=== PATIENT | male | born 1950 | race Caucasian/White ===

== ENCOUNTER → 2016-06-17 | Outpatient (CLI) | payer OTHER, MEDICARE ==
--- NOTE | 2016-06-17 10:34 | DX ---
Biphasic Esophagram CLINICAL HISTORY: 66-year-old male with right-sided throat pain, and a postnasal drip from the eustac hian tube, with a history of reflux symptoms (and a bleeding esophageal ulceration at age ). Evaluate dysphagia. ICD 10 Diagnostic Code: R13.10. TECHNIQUE: While the patient was standing, effervescent crystals and thick barium were ingested. Fluo roscopy of the hypopharynx and of the cervical and thoracic esophagus was then performed. The patient also ingested a barium tablet with water. Finally, he was placed in prone and AYALA positions, and thi n barium was ingested while a Valsalva maneuver was performed. Fluoroscopy Time: 1.8 minutes (exposure dose of 36.30 mGy). FINDINGS: There is oropharyngeal propulsion of the bolus into the hypopharynx. There is a normal, sym metrical appearance to the vallecula and the piriform sinuses. The posterior cervical esophagus is no rmal. There is no evidence of aspiration, cricopharyngeal spasm, or achalasia. There is no Zenker div erticulum. On several images from the first acquired thoracic esophageal sequences, there is an eccen tric filling defect at the thoracic inlet involving the right portion of the esophagus. This did not behave like a typical "air bubble" and theoretically may be a result of some extrinsic compression fr om vascular anatomy, although this is also at the level of the patient's symptoms and endoscopy is re commended to evaluate the lumen in this location. There is antegrade esophageal motility and normal-a ppearing mucosa otherwise. When the patient was supine or recumbent, a small central sliding hiatal h ernia was elicited, with some low-level gastroesophageal reflux which promptly cleared. There was no esophageal ulceration or stricture, and there is no pulsion diverticulum. I provided a preliminary in terpretation to the patient at time of exam performance. IMPRESSION: 1. Smoothly-contoured eccentric filling defect along the right aspect of the proximal thoracic esopha iain near the inlet. Endoscopic correlation is recommended to exclude an intraluminal abnormality. If endoscopy is unrevealing, CT imaging of the chest may be of benefit to exclude a vascular impression in this location. 2. Small central sliding hiatal hernia with transient low-level gastroesophageal reflux when the chavo ent was supine or recumbent.
== END ==
LOC: FIMAGING 09:10
PROVIDERS: ATTEND Physician Assistant Medical
DX: R13.10 Dysphagia, unspecified (principal); R09.82 Postnasal drip; K44.9 Diaphragmatic hernia without obstruction or gangrene; K21.9 Gastro-esophageal reflux disease without esophagitis

== ENCOUNTER → 2016-07-07 | Outpatient (CLI) | payer OTHER, MEDICARE ==
[~2016-07-07] MED LIST: IOPAMIDOL (ISOVUE-300) 100 ML BTL IV ONE
[2016-07-07 14:50] LABS: CREATININE 0.8 mg/dL (0.7-1.3); GLOMERULAR FILTRATION RATE > 60
--- NOTE | 2016-07-07 18:16 | CT ---
CT Scan of the Chest (With Contrast) Clinical Indications: Discomfort in throat to the right of the trachea at the level of the cricoid, R 13.10 Comparison: Esophagram June 17, 2016 Technique: During power injection of 90 mL Isovue 300 intravenously, multidetector [address] imaging was performed from the superior thoracic inlet to the diaphragm. A second set of images i s performed through the thoracic inlet just after the patient is swallowing. The radiologist manipula rosangela images at the computer workstation. Dose reduction techniques were utilized. Findings: Best identified on the immediate post swallowing study on axial image 74 of series 8 is an unusual appearance to the thoracic esophagus at the thoracic inlet, where a small portion of the the right side of the esophagus prolapses into the back of the posterior trachea. This suggests tracheoma lacia. There is some linear calcification of the aortic valve leaflets. There is no pericardial effus ion. There is no intracardiac thrombus. There is degenerative cervical disk space narrowing at C4-C5 and C6-C7. Anterior projecting marginal disk space osteophytes mildly project into the prevertebral soft tissues but do not obviously indent or displace the upper most portion of the esophagus, which is immediatel y above the abnormality described above. The larynx and remainder of the trachea look normal. The thy roid is normal. There is shotty noncalcified mediastinal and bilateral hilar adenopathy. There is no lung mass. There is triple-vessel coronary artery disease. Limited images through the upper abdomen demonstrate multiple low density lesions in the liver, the l argest of which in the left lobe measures 6.4 cm and average HU10.2, that likely represent incidental hepatic cysts, that are not significantly changed since July 2014 CT. There is a large chronic s car involving the upper pole of the right kidney. There is nonobstructive stable right upper pole sma ll volume nephrolithiasis. The spleen is normal in size and homogeneous. There is patchy subtle groundglass infiltrate in the right lower lung that may indicate early or reso lving pneumonia. There is no focal consolidation or pleural effusion. 1. Findings suspicious for tracheomalacia. Consider repeat noncontrast CT during expiration and force d coughing to assess for tracheal decrease in size. 2. Triple-vessel coronary artery disease. 3. Shotty mediastinal and hilar adenopathy. 4. Large hepatic lesions likely incidental cysts, stable since noncontrast CT July 2014. General information for patients regarding this examination can be found at [email or web address]. If you have questions or comments about this report, please contact me at [phone] (hospital) or [phone] (cell).
== END ==
LOC: FIMAGING 13:41
PROVIDERS: ATTEND Internal Medicine Gastroenterology
DX: R13.10 Dysphagia, unspecified (principal); I25.10 Atherosclerotic heart disease of native coronary artery without angina pectoris; N28.9 Disorder of kidney and ureter, unspecified
CPT/HCPCS: 71260; Q9967

== ENCOUNTER → 2017-01-14 | Outpatient (CLI) | payer OTHER, MEDICARE ==
[~2017-01-14] MED LIST changes: -IOPAMIDOL (ISOVUE-300) 100 ML BTL IV ONE; +IOPAMIDOL (ISOVUE-300) 100 ML BTL ONE
== END ==
LOC: FIMAGING 08:12
DX: R05 Cough (principal)
CPT/HCPCS: 70491; Q9967

== ENCOUNTER 2017-08-16 18:25 | Observation (INO) | payer OTHER, MEDICARE ==
--- NOTE | 2017-08-16 19:10 | EDPHY ---
H & P Time Seen by Provider: 08/16/17 19:09 HPI/ROS: Chief complaint. Abdominal pain HPI. 67-year-old male who was well earlier today and then developed chest and abdominal pain about an hour and a half ago. Shaking. No vomiting or diarrhea. He has some diffuse anterior chest discomfort. He has diffuse and generalized abdominal discomfort. He almost passed out prior to arrival and noticed that his vision went white. His vision is normal now does not have a headache. Possibly he 8 bad food at noon. He also complains of shortness of breath. No fever cough. Symptoms are worse with standing ROS Constitutional. no fever/chills, no weakness Eyes. no problems with vision ENT. no sore throat, no nasal drainage Cardiovascular. Chest pain Respiratory. Shortness of breath Abdominal. Generalized abdominal pain without vomiting or diarrhea . no problems urinating MS. no calf pain/swelling, no neck/back pain, no joint pain Skin. no rash Lymph. no swollen glands Neuro. no headache, no dizziness, no difficulty walking or with speech Past Medical/Surgical History: Renal cyst, detached retina, hypertension, arteriosus, kidney stones Social History: , nonsmoker, no alcohol Smoking Status: Never smoked Physical Exam: General Appearance: Alert well-developed male moderate distress and ill appearing with stable vital signs. Eyes: Pupils equal and round no pallor or injection. ENT, Mouth: Mucous membranes are moist. Respiratory: There are no retractions, lungs are clear to auscultation. Cardiovascular: Regular rate and rhythm. Gastrointestinal: Abdomen is soft diffusely tender. No masses. No pulsatile masses. Normal bowel sounds. Neurological: Awake and alert, sensory and motor exams grossly normal. Skin: Warm and dry, no rashes. Musculoskeletal: Neck is supple nontender. Extremities symmetrical, full range of motion. Psychiatric: Patient is oriented X 3, there is no agitation. Constitutional: Initial Vital Signs Temperature (C) 36.5 C 08/16/17 18:33 Heart Rate 59 L 08/16/17 18:33 Respiratory Rate 16 08/16/17 18:33 Blood Pressure 118/63 08/16/17 18:33 O2 Delivery Mode Nasal Cannula O2 (L/minute) 2 Allergies/Adverse Reactions: Penicillins Allergy (Mild, Verified 07/26/14 15:10) FINGERS SWELLING Home Medications: Medication Instructions Recorded Aspirin [Aspirin 325 mg (*)] 325 mg PO HS 07/26/14 Atorvastatin Calcium [Lipitor 10 10 mg PO HS 07/26/14 mg (*)] Hydrochlorothiazide [HCTZ (*)] 12.5 mg PO HS 07/26/14 Lisinopril [Zestril 20 mg (*)] 20 mg PO HS 07/26/14 Niacin ER [Niaspan 1000 mg (*)] 1,000 mg PO HS 07/26/14 Promethazine HCl [Phenergan 6.25 - 12.5 mg IVP Q6 PRN #0 vial 07/27/14 Injection] Tamsulosin HCl [Flomax 0.4 MG (*)] 0.4 mg PO DAILY #14 cap 07/27/14 oxyCODONE IR [Oxycodone Ir (*)] 5 - 10 mg PO Q3 PRN #30 tab 07/27/14 Medical Decision Making - Diagnostics EKG Interpretation: EKG interpreted by me shows normal sinus rhythm with normal interval. There is left axis deviation. QRS is normal. There is no significant ST elevation or depression. The rate is 66 Imaging Results: Imaging Impressions Chest X-Ray 08/16/17 19:17 Impression: Chest negative for acute abnormality. One-view chest interpreted by me is negative for pneumonia or pneumothorax. Mediastinum appears normal. CT angiogram chest shows no evidence of pulmonary embolus or aortic dissection CT of abdomen and pelvis with IV contrast shows no evidence of aortic aneurysm or dissection. Diverticulosis but not itis. Fairly significant coronary artery disease. Procedures: IV normal saline with 2 L. Dilaudid for pain. Zofran for nausea ED Course/Re-evaluation: Serial evaluations patient continually is asking for pain medication. He has been treated with several rounds of Dilaudid. At 8:45 a.m. The patient, his , and I discussed treatment plan and recommendation for admission. They expressed understanding and agreement I consulted and discussed the case with , hospitalist who agrees to the admission Differential Diagnosis: The etiology of patient's symptoms is not clear. The patient appeared ill I was concerned about pulmonary embolus as well as aortic dissection because he had both chest and abdominal discomfort. He was complaining that he could not breathe. Workup shows no evidence of dissection or pulmonary embolus. I have considered acute coronary syndrome as the patient does have calcifications on his CT. He has diverticulosis but no evidence for diverticulitis. The patient is think that the patient may have food poisoning although he has not had any vomiting or diarrhea. He did apparently have bad food exposure. - Data Points Laboratory Results: Laboratory Results 08/16/17 19:00 08/16/17 19:00 08/16/17 08/16/17 08/16/17 20:10 19:00 19:00 WBC 8.42 10^3/uL 10^3/uL (3.80-9.50) RBC 4.63 10^6/uL 10^6/uL (4.40-6.38) Hgb 13.8 g/dL g/dL (13.7-17.5) POC Hgb Hct 41.4 % % (40.0-51.0) POC Hct MCV 89.4 fL fL (81.5-99.8) MCH 29.8 pg pg (27.9-34.1) MCHC 33.3 g/dL g/dL (32.4-36.7) RDW 15.2 % % (11.5-15.2) Plt Count 268 10^3/uL 10^3/uL (150-400) MPV 10.3 fL fL (8.7-11.7) Neut % (Auto) 43.3 % % (39.3-74.2) Lymph % (Auto) 39.8 % % (15.0-45.0) [place] % (Auto) 13.9 % H % (4.5-13.0) Eos % (Auto) 2.0 % % (0.6-7.6) Baso % (Auto) 0.8 % % (0.3-1.7) Nucleat RBC Rel Count 0.0 % % (0.0-0.2) Absolute Neuts (auto) 3.64 10^3/uL 10^3/uL (1.70-6.50) Absolute Lymphs (auto) 3.35 10^3/uL H 10^3/uL (1.00-3.00) Absolute Monos (auto) 1.17 10^3/uL H 10^3/uL (0.30-0.80) Absolute Eos (auto) 0.17 10^3/uL 10^3/uL (0.03-0.40) Absolute Basos (auto) 0.07 10^3/uL 10^3/uL (0.02-0.10) Absolute Nucleated RBC 0.00 10^3/uL 10^3/uL (0-0.01) Immature Gran % 0.2 % % (0.0-1.1) Immature Gran # 0.02 10^3/uL 10^3/uL (0.00-0.10) PT INR D-Dimer VBG Lactic Acid 1.5 mmol/L mmol/L (0.7-2.1) POC Sodium Sodium 142 mEq/L mEq/L (135-145) POC Potassium Potassium 3.6 mEq/L mEq/L (3.5-5.2) POC Chloride Chloride 103 mEq/L mEq/L (97-110) Carbon Dioxide 25 mEq/l mEq/l (22-31) Anion Gap 14 mEq/L mEq/L (8-16) POC BUN BUN 12 mg/dL mg/dL (7-23) Creatinine 0.9 mg/dL mg/dL (0.7-1.3) POC Creatinine Estimated GFR > 60 Glucose 120 mg/dL H mg/dL (70-100) POC Glucose Calcium 8.9 mg/dL mg/dL (8.5-10.4) Troponin I < 0.012 ng/mL ng/mL (0.000-0.034) Lipase 127 IU/L IU/L (23-300) 08/16/17 08/16/17 19:00 18:48 WBC RBC Hgb POC Hgb 13.9 gm/dL gm/dL (13.7-17.5) Hct POC Hct 41 % % (40-51) MCV MCH MCHC RDW Plt Count MPV Neut % (Auto) Lymph % (Auto) [place] % (Auto) Eos % (Auto) Baso % (Auto) Nucleat RBC Rel Count Absolute Neuts (auto) Absolute Lymphs (auto) Absolute Monos (auto) Absolute Eos (auto) Absolute Basos (auto) Absolute Nucleated RBC Immature Gran % Immature Gran # PT 13.2 SEC SEC (12.0-15.0) INR 0.98 (0.83-1.16) D-Dimer 0.28 ug/mLFEU ug/mLFEU (0.00-0.50) VBG Lactic Acid POC Sodium 144 mEq/L mEq/L (135-145) Sodium POC Potassium 3.0 mEq/L L mEq/L (3.3-5.0) Potassium POC Chloride 105 mEq/L mEq/L (97-110) Chloride Carbon Dioxide Anion Gap POC BUN 10 mg/dL mg/dL (7-23) BUN Creatinine POC Creatinine 1.0 mg/dL mg/dL (0.7-1.3) Estimated GFR Glucose POC Glucose 128 mg/dL H mg/dL (70-100) Calcium Troponin I Lipase Medications Given: Discontinued Medications Hydromorphone HCl (Dilaudid) 1 mg IVP EDNOW ONE Stop: 08/16/17 19:17 Last Admin: 08/16/17 19:26 Dose: 1 mg Hydromorphone HCl (Dilaudid) 0.5 mg IVP EDNOW ONE Stop: 08/16/17 20:13 Last Admin: 08/16/17 20:31 Dose: 0.5 mg Sodium Chloride (Ns) 1,000 mls @ 0 mls/hr IV EDNOW ONE; Wide Open PRN Reason: Protocol Stop: 08/16/17 19:17 Last Admin: 08/16/17 19:24 Dose: 1,000 mls Sodium Chloride (Ns) 1,000 mls @ 0 mls/hr IV EDNOW ONE; Wide Open PRN Reason: Protocol Stop: 08/16/17 19:17 Last Admin: 08/16/17 19:24 Dose: 1,000 mls Lorazepam (Ativan Injection) 1 mg IVP EDNOW ONE Stop: 08/16/17 20:46 Last Admin: 08/16/17 20:49 Dose: 1 mg Ondansetron HCl (Zofran) 4 mg IVP EDNOW ONE Stop: 08/16/17 19:17 Last Admin: 08/16/17 19:25 Dose: 4 mg Point of Care Test Results: 08/16/17 18:48 POC Sodium 144 POC Potassium 3.0 L POC Chloride 105 POC BUN 10 POC Creatinine 1.0 POC Glucose 128 H Departure - Departure Disposition: [facility] Inpatient Acute Clinical Impression: Abdominal pain Qualifiers: Abdominal location: generalized Qualified Code(s): R10.84 - Generalized abdominal pain Chest pain Qualifiers: Chest pain type: unspecified Qualified Code(s): R07.9 - Chest pain, unspecified Condition: Fair Referrals: Rigo Wong MD [Primary Care Provider] - As per Instructions
[2017-08-16] MEDS ORDERED: ONDANSETRON 4 MG/2 ML VIAL IVP ONE (19:16)
[2017-08-16] MEDS ORDERED: NS 1,000 ML IV ONE ×2 (19:16)
[2017-08-16] MEDS ORDERED: HYDROmorphONE/DILAUDID 2 MG/ML INJ IVP ONE ×2 (19:16→20:12)
[2017-08-16] MEDS ORDERED: IOPAMIDOL (ISOVUE 370) 100 ML BTL IV ONE (19:27)
[2017-08-16 19:29] LABS: PLATELET COUNT 268 10^3/uL (150-400)
--- NOTE | 2017-08-16 19:29 | CPEKG ---
Heart Rate: 66 RR Interval: 909 P-R Interval: 176 QRSD Interval: 80 QT Interval: 404 QTC Interval: 424 P [place]: 46 QRS [place]: 4 T Wave [place]: 52 EKG Severity - ABNORMAL ECG - EKG Impression: SINUS RHYTHM EKG Impression: ABNRM R PROG, CONSIDER ASMI OR LEAD PLACEMENT Electronically Signed By: Jasper Delvalle 16-Aug-2017 21:17:15
[2017-08-16 19:32] LABS: INR 0.98 (0.83-1.16); PROTIME(PATIENT) 13.2 SEC (12.0-15.0)
[2017-08-16] MEDS ORDERED: LORazepam 2 MG/ML INJ IVP ONE (20:45)
[2017-08-16] MEDS ORDERED: ACETAMINOPHEN 325 MG TAB PO PRN (22:28)
[2017-08-16] MEDS ORDERED: ONDANSETRON 4 MG/2 ML VIAL IVP PRN (22:28)
[2017-08-16] MEDS ORDERED: PROMETHAZINE HCL 25 MG/ML INJ IVP PRN (22:28)
[2017-08-16] MEDS ORDERED: oxyCODONE IR 5 MG TAB PO PRN (22:28)
[2017-08-16] MEDS ORDERED: ONDANSETRON DISINTEGRATING 4 MG TAB PO PRN (22:28)
--- NOTE | 2017-08-16 23:49 | PDGENHP ---
History and Physical - Chief Complaint Abdominal pain - History of Present Illness 67 yo M w/ HTN and HLD presents with abdominal pain. Patient was in usual state of health earlier today. Around the middle of the day he ate some turkey sausages. He felt ok most of the afternoon but then began to experience severe abdominal cramping so he came to the ED. In the ED he was treated with fluids, pain medication, and anti-emetics, which have mostly resolved his symptoms. He denies vomiting or diarrhea. CTAs of C/A/P in the ED were negative for acute etiology of pain. Laboratory work-up was also unremarkable. History Information - Allergies/Home Medication List Allergies/Adverse Reactions: Penicillins Allergy (Mild, Verified 07/26/14 15:10) FINGERS SWELLING Home Medications: Aspirin [Aspirin 325 mg (*)] 325 mg PO HS 07/26/14 [Last Taken 08/15/17] Hydrochlorothiazide [HCTZ (*)] 12.5 mg PO HS 07/26/14 [Last Taken 08/15/17] Lisinopril [Zestril 20 mg (*)] 20 mg PO HS 07/26/14 [Last Taken 08/15/17] Niacin ER [Niaspan 1000 mg (*)] 1,000 mg PO HS 07/26/14 [Last Taken 08/15/17] Atorvastatin Calcium [Lipitor 40 mg (*)] 40 mg PO HS 08/16/17 [Last Taken ] Testosterone [Testosterone] 5 gm TP DAILY 08/16/17 [Last Taken 08/16/17] I have personally reviewed and updated: family history, medical history - Past Medical History hypertension, hyperlipidemia - Family History Positive for: CAD - Social History Smoking Status: Never smoked Review of Systems Review of Systems: ROS: 10pt was reviewed & negative except for what was stated in HPI & below Physical Exam Physical Exam: Temp Pulse Resp BP Pulse Ox 36.4 C 75 16 97/53 L 96 08/16/17 23:32 08/16/17 23:32 08/16/17 23:32 08/16/17 23:33 08/16/17 23:32 O2 (L/minute) 2 Constitutional: no apparent distress, not in pain Eyes: PERRL, EOMI Ears, Nose, Mouth, Throat: moist mucous membranes, no oral mucosal ulcers Cardiovascular: regular rate and rhythym, no murmur, rub, or gallop Respiratory: no respiratory distress, clear to auscultation Gastrointestinal: normoactive bowel sounds, soft, non-tender abdomen Skin: warm, normal color Musculoskeletal: full muscle strength, no muscle tenderness Neurologic: AAOx3, CN II-XII Intact Psychiatric: interacting appropriately, not anxious Lab Data & Imaging Review 08/16/17 19:00 08/16/17 19:00 WBC 8.42 10^3/uL (3.80-9.50) 08/16/17 19:00 RBC 4.63 10^6/uL (4.40-6.38) 08/16/17 19:00 Hgb 13.8 g/dL (13.7-17.5) 08/16/17 19:00 POC Hgb 13.9 gm/dL (13.7-17.5) 08/16/17 18:48 Hct 41.4 % (40.0-51.0) 08/16/17 19:00 POC Hct 41 % (40-51) 08/16/17 18:48 MCV 89.4 fL (81.5-99.8) 08/16/17 19:00 MCH 29.8 pg (27.9-34.1) 08/16/17 19:00 MCHC 33.3 g/dL (32.4-36.7) 08/16/17 19:00 RDW 15.2 % (11.5-15.2) 08/16/17 19:00 Plt Count 268 10^3/uL (150-400) 08/16/17 19:00 MPV 10.3 fL (8.7-11.7) 08/16/17 19:00 Neut % (Auto) 43.3 % (39.3-74.2) 08/16/17 19:00 Lymph % (Auto) 39.8 % (15.0-45.0) 08/16/17 19:00 [place] % (Auto) 13.9 % (4.5-13.0) H 08/16/17 19:00 Eos % (Auto) 2.0 % (0.6-7.6) 08/16/17 19:00 Baso % (Auto) 0.8 % (0.3-1.7) 08/16/17 19:00 Nucleat RBC Rel Count 0.0 % (0.0-0.2) 08/16/17 19:00 Absolute Neuts (auto) 3.64 10^3/uL (1.70-6.50) 08/16/17 19:00 Absolute Lymphs (auto) 3.35 10^3/uL (1.00-3.00) H 08/16/17 19:00 Absolute Monos (auto) 1.17 10^3/uL (0.30-0.80) H 08/16/17 19:00 Absolute Eos (auto) 0.17 10^3/uL (0.03-0.40) 08/16/17 19:00 Absolute Basos (auto) 0.07 10^3/uL (0.02-0.10) 08/16/17 19:00 Absolute Nucleated RBC 0.00 10^3/uL (0-0.01) 08/16/17 19:00 Immature Gran % 0.2 % (0.0-1.1) 08/16/17 19:00 Immature Gran # 0.02 10^3/uL (0.00-0.10) 08/16/17 19:00 PT 13.2 SEC (12.0-15.0) 08/16/17 19:00 INR 0.98 (0.83-1.16) 08/16/17 19:00 D-Dimer 0.28 ug/mLFEU (0.00-0.50) 08/16/17 19:00 VBG Lactic Acid 1.5 mmol/L (0.7-2.1) 08/16/17 20:10 POC Sodium 144 mEq/L (135-145) 08/16/17 18:48 Sodium 142 mEq/L (135-145) 08/16/17 19:00 POC Potassium 3.0 mEq/L (3.3-5.0) L 08/16/17 18:48 Potassium 3.6 mEq/L (3.5-5.2) 08/16/17 19:00 POC Chloride 105 mEq/L (97-110) 08/16/17 18:48 Chloride 103 mEq/L (97-110) 08/16/17 19:00 Carbon Dioxide 25 mEq/l (22-31) 08/16/17 19:00 Anion Gap 14 mEq/L (8-16) 08/16/17 19:00 POC BUN 10 mg/dL (7-23) 08/16/17 18:48 BUN 12 mg/dL (7-23) 08/16/17 19:00 Creatinine 0.9 mg/dL (0.7-1.3) 08/16/17 19:00 POC Creatinine 1.0 mg/dL (0.7-1.3) 08/16/17 18:48 Estimated GFR > 60 08/16/17 19:00 Glucose 120 mg/dL (70-100) H 08/16/17 19:00 POC Glucose 128 mg/dL (70-100) H 08/16/17 18:48 Calcium 8.9 mg/dL (8.5-10.4) 08/16/17 19:00 Troponin I < 0.012 ng/mL (0.000-0.034) 08/16/17 19:00 Lipase 127 IU/L (23-300) 08/16/17 19:00 Urine Color PALE YELLOW 08/16/17 21:40 Urine Appearance CLEAR 08/16/17 21:40 Urine pH 8.0 (5.0-7.5) H 08/16/17 21:40 Ur Specific [place] > 1.035 (1.002-1.030) H 08/16/17 21:40 Urine Protein NEGATIVE (NEGATIVE) 08/16/17 21:40 Urine Ketones NEGATIVE (NEGATIVE) 08/16/17 21:40 Urine Blood NEGATIVE (NEGATIVE) 08/16/17 21:40 Urine Nitrate NEGATIVE (NEGATIVE) 08/16/17 21:40 Urine Bilirubin NEGATIVE (NEGATIVE) 08/16/17 21:40 Urine Urobilinogen NEGATIVE EU (0.2-1.0) 08/16/17 21:40 Ur Leukocyte Esterase NEGATIVE (NEGATIVE) 08/16/17 21:40 Urine RBC NONE SEEN /hpf (0-3) 08/16/17 21:40 Urine WBC 1-3 /hpf (0-3) 08/16/17 21:40 Ur Epithelial Cells TRACE /lpf (NONE-1+) 08/16/17 21:40 Urine Mucus TRACE /lpf (NONE-1+) 08/16/17 21:40 Urine Glucose NEGATIVE (NEGATIVE) 08/16/17 21:40 Imaging Review: Imaging Impressions Abdomen/Pelvis CTA 08/16/17 19:17 Impression: 1. Mild dilatation and ectasia of the thoracic aorta, with no evidence for dissection. 2. No findings to suggest pulmonary embolic disease. 3. Extensive coronary arterial calcifications. 4. Calcification of the abdominal aorta, without dissection or aneurysm. 5. Diverticulosis, without diverticulitis. 6. See above report for additional findings. Results called and discussed with Jasper Delvalle M.D., on August 16, 2017 at 2044. Chest X-Ray 08/16/17 19:17 Impression: Chest negative for acute abnormality. Chest/Thorax CTA 08/16/17 19:17 Impression: 1. Mild dilatation and ectasia of the thoracic aorta, with no evidence for dissection. 2. No findings to suggest pulmonary embolic disease. 3. Extensive coronary arterial calcifications. 4. Calcification of the abdominal aorta, without dissection or aneurysm. 5. Diverticulosis, without diverticulitis. 6. See above report for additional findings. Results called and discussed with Jasper Delvalle M.D., on August 16, 2017 at 2044. Assessment & Plan Assessment: 67 yo M w/ hx of HTN and HLD presents with abdominal pain. Plan: 1. Abdominal pain - Began several hours after eating turkey sausages, which was most likely causative. Extensive work-up in the ED including CTAs of C /A/P were not elucidating of other etiologies. Patient's pain is improved after fluids, pain medication, and anti-emetics. - Admit for observation - Will add on LFTs to complete laboratory work-up - Anti-emetics, pain control - Will trend cardiac enzymes and monitor on tele to address remote possibility this could be cardiac in etiology 2. HTN - On lisinopril and HCTZ as outpatient. 3. HLD - Continue statin. Diet - Clears, ADAT Code - Full Ppx- LMWH Dispo - Admit under observation status
[2017-08-17 04:01] LABS: PLATELET COUNT 211 10^3/uL (150-400)
[2017-08-17 07:48] VITALS: BP 106/58; PULSE 63; RESP 13; O2SAT 93
[2017-08-17] MEDS ORDERED: ENOXAPARIN 40 MG/0.4 ML SYR SC SCH (09:00)
[2017-08-17 11:29] VITALS: TEMP 97.7
--- NOTE | 2017-08-17 18:00 | PDDCSUM ---
Discharge Summary Discharge Summary: DISCHARGE SUMMARY FOLLOW-UP ITEMS: Repeat colonoscopy Reassess symptoms DATE OF ADMISSION: 08/16/2017 DATE OF DISCHARGE: 08/17/2017 DISCHARGE DIAGNOSES: 1. Acute abdominal pain 2. Acute syncope CONSULTATIONS: None PROCEDURES / IMAGING: CT angiogram of the chest demonstrating no pulmonary embolism, no pulmonary abnormalities CT of the abdomen with contrast demonstrating diverticulosis, small right-sided kidney stone, small hepatic cysts, distended stomach CHIEF COMPLAINT: Acute abdominal pain SUBJECTIVE: Patient has not experienced any recurrence of his abdominal pain PHYSICAL EXAM ON DISCHARGE: Systolic blood pressure is 110, heart rate 70, afebrile overnight, satting on room air, alert awake oriented x3, bowel sounds are present, abdomen is soft nontender nondistended LABS ON DISCHARGE: White blood cell count 6500, hemoglobin 12.5, potassium 4.3, creatinine 0.7, D- dimer negative, troponin negative x2, liver panel unremarkable, lactic acid normal, urinalysis normal, lipase normal HOSPITAL COURSE BY PROBLEM: The patient presented for acute abdominal pain and syncope and was ruled out for acute coronary syndrome with negative troponin x2, no ischemic changes on EKG, ruled out for pulmonary embolism with negative D-dimer and negative CT angiogram. Most likely cause of his acute abdominal pain is bowel distention likely secondary to irritation from consuming at the base oxygen is or from viral enteritis. The patient's symptoms were transient but severe, and most likely provoked a vasovagal response, resulting in his syncope. The patient's hemodynamics were self-resolving, and his pain was treated with Dilaudid and he was treated supportively with IV fluids overnight. He was evaluated thoroughly with a chest and abdomen CT, which did not demonstrate any structural abnormalities other than distended stomach, most likely secondary to transient bowel irritation. I discussed our findings in great detail with the patient, and provided him with the presumptive diagnosis of bowel distention pain likely from irritation and symptomatic peristalsis, resulting in vasovagal episode, all of which were self-limited. The patient did divulge that he has had precancerous colonic polyps and he is 4 years from his last colonoscopy. I did recommend the patient follow up [facility] and undergo his serial colonoscopy to ensure that he has not experienced a transient large bowel obstruction from an obstructing polyp. There was no large bowel abnormality on CT imaging, but this is not the ideal imaging modality for colonic polyps. I also recommended that he follow up with his primary care provider to discuss any recurrence of any symptoms to ensure that this episode of abdominal pain was not a harbinger of an underlying abnormality. That said, all of his labs are completely normal and I think it is low likelihood that this is something more serious than transient bowel distention and enteritis. DISCHARGE MEDICATIONS: Please see official discharge medication reconciliation sheet in chart , continue all home medications without changes. DISCHARGE INSTRUCTIONS: Please follow up with primary care provider and GI of [facility] to schedule colonoscopy
== END 2017-08-17 11:59 | disposition home or self-care (01) ==
LOC: INTOOBSV 21:06 → F2W 21:48
PROVIDERS: ADMIT Internal Medicine; ATTEND Internal Medicine
DX: R10.9 Unspecified abdominal pain (principal); R55 Syncope and collapse; I10 Essential (primary) hypertension; E78.5 Hyperlipidemia, unspecified; Z88.0 Allergy status to penicillin
CPT/HCPCS: 71045; 71275; 74174; 93005; G0378; J1170; J1650; J2060; J2405; Q9967; 82947-QW; 96374

== ENCOUNTER 2017-11-17 13:55 | Observation (INO) | payer OTHER, MEDICARE ==
[2017-11-17] MEDS ORDERED: NS 1,000 ML IV ONE (14:04)
--- NOTE | 2017-11-17 14:05 | CPEKG ---
Heart Rate: 60 RR Interval: 1000 P-R Interval: 188 QRSD Interval: 76 QT Interval: 432 QTC Interval: 432 P Lamar: 25 QRS Lamar: -12 T Wave Lamar: 19 EKG Severity - NORMAL ECG - EKG Impression: SINUS RHYTHM Electronically Signed By: Phoenix Harper 20-Nov-2017 06:53:32
[2017-11-17 14:16] LABS: PLATELET COUNT 287 10^3/uL (150-400)
--- NOTE | 2017-11-17 14:34 | EDPHY ---
H & P Stated Complaint: BIBA for syncope, abd pain, cardiac alert. 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 He was sitting at lunch when he developed upper abdominal cramping, followed by a persistent severe pain. He then became sweaty and had a witnessed syncopal episode. 911 was called. On EMS arrival, he was hypotensive and diaphoretic. Cardiac alert called. On arrival to the ED , blood pressure is normal and he is complaining of moderate upper abdominal pain. Similar to prior episode in July 2017. He was admitted to this hospital at that time and extensive evaluation including CT pulmonary angiogram and CT angiogram of the abdomen were normal. REVIEW OF SYSTEMS: complete 10 point ROS negative except at noted in the HPI - Personal History Current Tetanus/Diphtheria Vaccine: Yes Current Tetanus Diphtheria and Acellular Pertussis (TDAP): Yes Tetanus Vaccine Date: 2013 - Medical/Surgical History Hx Asthma: No Hx Chronic Respiratory Disease: No Hx Diabetes: No Hx Cardiac Disease: No Hx Renal Disease: Yes Hx Cirrhosis: No Hx Alcoholism: No Hx HIV/AIDS: No Hx Splenectomy or Spleen Trauma: No Other PMH: renal cyst (removed). detached retina. HTN. arteriosis. kidney stones - Social History Smoking Status: Never smoked - Physical Exam Exam: General Appearance: Alert, pleasant Eyes: Pupils equal and round, no conjunctival pallor or injection ENT, Mouth: Mucous membranes moist Neck: Normal inspection Respiratory: Lungs are clear to auscultation anteriorly Cardiovascular: Regular rate and rhythm Gastrointestinal: Abdomen is soft, mild epigastric tenderness, no pulsatile masses Neurological: A&O, nonfocal exam Skin: Warm and dry Extremities: Normal inspection Psychiatric: Mood and affect normal Constitutional: Initial Vital Signs Heart Rate 62 11/17/17 14:06 Respiratory Rate 16 11/17/17 14:06 Blood Pressure 112/68 11/17/17 14:06 O2 Sat (%) 98 11/17/17 14:06 O2 Delivery Mode Nasal Cannula O2 (L/minute) 2 Allergies/Adverse Reactions: Penicillins Allergy (Mild, Verified 11/17/17 14:05) FINGERS SWELLING Home Medications: Medication Instructions Recorded Aspirin [Aspirin 325 mg (*)] 325 mg PO HS 07/26/14 Hydrochlorothiazide [HCTZ (*)] 12.5 mg PO HS 07/26/14 Lisinopril [Zestril 20 mg (*)] 20 mg PO HS 07/26/14 Niacin ER [Niaspan 1000 mg (*)] 1,000 mg PO HS 07/26/14 Atorvastatin Calcium [Lipitor 40 40 mg PO HS 08/16/17 mg (*)] Testosterone 5 gm TP DAILY 08/16/17 Benzonatate 200 mg PO DAILY PRN 11/17/17 predniSONE 20 mg PO DAILY PRN 11/17/17 Medical Decision Making - Diagnostics EKG Interpretation: EKG interpreted by me reveals normal sinus rhythm, rate 60, no ST or T segment changes. Interpretation: Normal EKG Imaging Results: Imaging Impressions Chest X-Ray 11/17/17 13:59 Impression: Chest negative for acute abnormality. Abdomen CT 11/17/17 14:04 Impression: 1. No pneumoperitoneum or acute intraabdominal inflammatory process. 2. Sigmoid diverticulosis is unchanged. No acute diverticulitis. 3. Right nephrolithiasis is unchanged. Findings discussed with Emergency Department physician, Clarisse Patel M.D., on November 17, 2017 at 1523. Abdomen Ultrasound 11/17/17 15:17 Impression: 1. Normal gallbladder. No cholelithiasis or evidence of inflammation. 2. No free fluid or hydronephrosis. Findings discussed with Emergency Department physician, Dr. Clarisse Patel on November 17, 2017 at 1651 hours. ED Course/Re-evaluation: This patient presents as a cardiac alert. Pre-hospital EKG reviewed by me reveals normal sinus rhythm, no ST or T segment changes. Emergency department EKG reveals normal sinus rhythm without ischemia or dysrhythmia. Dr. Hannon was present on patient arrival. Stat echo reveals normal LV function. Old medical record reviewed and reveals prior similar symptoms with extensive negative workup. Abdominal exam is relatively benign. I suspect that this patient developed abdominal pain of unclear etiology, which led to a vasovagal episode. 1515-abdominal pain is returning. Abdomen is soft, epigastric and right upper quadrant tenderness. No prior history of gallstones. Right upper quadrant ultrasound ordered. The hospitalist service was consulted for admission. Right upper quadrant ultrasound is normal. Results discussed with the patient. He has mild epigastric pain. Abdomen is soft, mild epigastric tenderness present. Vital signs have been normal and undercoat sprayer reveals normal sinus rhythm throughout. He will be admitted for further evaluation of epigastric pain and syncope. Differential Diagnosis: Differential diagnosis includes though it is not limited to appendicitis, cholecystitis, diverticulitis, pyelonephritis, bowel perforation, small bowel obstruction. - Data Points Laboratory Results: Laboratory Results 11/17/17 13:45 11/17/17 13:45 11/17/17 11/17/17 11/17/17 14:09 14:05 13:45 WBC RBC Hgb POC Hgb 15.6 gm/dL gm/dL (13.7-17.5) Hct POC Hct 46 % % (40-51) MCV MCH MCHC RDW Plt Count MPV Neut % (Auto) Lymph % (Auto) [place] % (Auto) Eos % (Auto) Baso % (Auto) Nucleat RBC Rel Count Absolute Neuts (auto) Absolute Lymphs (auto) Absolute Monos (auto) Absolute Eos (auto) Absolute Basos (auto) Absolute Nucleated RBC Immature Gran % Immature Gran # POC Sodium 142 mEq/L mEq/L (135-145) Sodium POC Potassium 2.8 mEq/L L mEq/L (3.3-5.0) Potassium POC Chloride 103 mEq/L mEq/L (97-110) Chloride Carbon Dioxide Anion Gap POC BUN 13 mg/dL mg/dL (7-23) BUN Creatinine POC Creatinine 1.0 mg/dL mg/dL (0.7-1.3) Estimated GFR Glucose POC Glucose 121 mg/dL H mg/dL (70-100) Calcium Magnesium 2.1 mg/dL mg/dL (1.6-2.3) Total Bilirubin Conjugated Bilirubin Unconjugated Bilirubin AST ALT Alkaline Phosphatase POC Troponin I 0.01 ng/mL ng/mL (0.00-0.08) Total Protein Albumin Lipase 11/17/17 11/17/17 13:45 13:45 WBC 11.21 10^3/uL H 10^3/uL (3.80-9.50) RBC 5.24 10^6/uL 10^6/uL (4.40-6.38) Hgb 15.6 g/dL g/dL (13.7-17.5) POC Hgb Hct 45.1 % % (40.0-51.0) POC Hct MCV 86.1 fL fL (81.5-99.8) MCH 29.8 pg pg (27.9-34.1) MCHC 34.6 g/dL g/dL (32.4-36.7) RDW 14.4 % % (11.5-15.2) Plt Count 287 10^3/uL 10^3/uL (150-400) MPV 10.3 fL fL (8.7-11.7) Neut % (Auto) 59.9 % % (39.3-74.2) Lymph % (Auto) 26.5 % % (15.0-45.0) [place] % (Auto) 12.6 % % (4.5-13.0) Eos % (Auto) 0.3 % L % (0.6-7.6) Baso % (Auto) 0.4 % % (0.3-1.7) Nucleat RBC Rel Count 0.0 % % (0.0-0.2) Absolute Neuts (auto) 6.73 10^3/uL H 10^3/uL (1.70-6.50) Absolute Lymphs (auto) 2.97 10^3/uL 10^3/uL (1.00-3.00) Absolute Monos (auto) 1.41 10^3/uL H 10^3/uL (0.30-0.80) Absolute Eos (auto) 0.03 10^3/uL 10^3/uL (0.03-0.40) Absolute Basos (auto) 0.04 10^3/uL 10^3/uL (0.02-0.10) Absolute Nucleated RBC 0.00 10^3/uL 10^3/uL (0-0.01) Immature Gran % 0.3 % % (0.0-1.1) Immature Gran # 0.03 10^3/uL 10^3/uL (0.00-0.10) POC Sodium Sodium 139 mEq/L mEq/L (135-145) POC Potassium Potassium 3.1 mEq/L L mEq/L (3.3-5.0) POC Chloride Chloride 102 mEq/L mEq/L (97-110) Carbon Dioxide 25 mEq/l mEq/l (22-31) Anion Gap 12 mEq/L mEq/L (8-16) POC BUN BUN 14 mg/dL mg/dL (7-23) Creatinine 1.0 mg/dL mg/dL (0.7-1.3) POC Creatinine Estimated GFR > 60 Glucose 115 mg/dL H mg/dL (70-100) POC Glucose Calcium 9.4 mg/dL mg/dL (8.5-10.4) Magnesium Total Bilirubin 0.7 mg/dL mg/dL (0.1-1.4) Conjugated Bilirubin 0.5 mg/dL mg/dL (0.0-0.5) Unconjugated Bilirubin 0.2 mg/dL mg/dL (0.0-1.1) AST 23 IU/L IU/L (17-59) ALT 31 IU/L IU/L (21-72) Alkaline Phosphatase 113 IU/L IU/L (38-126) POC Troponin I Total Protein 6.6 g/dL g/dL (6.3-8.2) Albumin 4.0 g/dL g/dL (3.5-5.0) Lipase 120 IU/L IU/L (23-300) Medications Given: Discontinued Medications Sodium Chloride (Ns) 1,000 mls @ 0 mls/hr IV EDNOW ONE; Wide Open PRN Reason: Protocol Stop: 11/17/17 14:05 Last Admin: 11/17/17 14:18 Dose: 1,000 mls Point of Care Test Results: Chemistry 11/17/17 11/17/17 14:09 14:05 POC Sodium 142 mEq/L mEq/L (135-145) POC Potassium 2.8 mEq/L L mEq/L (3.3-5.0) POC Chloride 103 mEq/L mEq/L (97-110) POC BUN 13 mg/dL mg/dL (7-23) POC Creatinine 1.0 mg/dL mg/dL (0.7-1.3) POC Glucose 121 mg/dL H mg/dL (70-100) POC Troponin I 0.01 ng/mL ng/mL (0.00-0.08) ISTAT H&H 11/17/17 14:05 POC Hgb 15.6 gm/dL gm/dL (13.7-17.5) POC Hct 46 % % (40-51) Departure - Departure Disposition: [facility]
[2017-11-17] MEDS ORDERED: IOPAMIDOL (ISOVUE-300) 100 ML BTL ONE (14:42)
--- NOTE | 2017-11-17 14:57 | ECHO ---
[email or web address] [place] [id number] Main: [phone] Fax: Transthoracic Echocardiogram Name: DENNIS DAN MR#: [id number] Study Date: 11/17/2017 Study Time: 02:17 PM Date of : 1950 Age: 67 year(s) Height: 177.8 cm (70 in.) Weight: 90.72 kg (200 lb.) BSA: 2.09 m2 Gender: Male Examination: Limited Echo Indication: Cardiac Alert Image Quality: Contrast: Requested by: Clarisse Patel BP: 126 mmHg/72 mmHg Heart Rate: Rhythm: Indication: Cardiac Alert Procedure Staff Snow Removing Supervisor: Kale Jorge RDCS Reading Physician: Qamar Hannon MD Requesting Provider: Conclusions: This is a limited echo to evaluate LV function in the ER during a Cardiac Alert. Multiple views were obtained and there is no obvious LV wall motion. There is no pericardial effusion.. Measurements: Chambers Valvular Assessment AV/MV Valvular Assessment TV/PV Normal Normal Normal Name Value Range Name Value Range Name Value Range TR Vmax: 2.69 mm/s ( - ) TR PGmax: 29 mmHg ( - ) syst. PAP: 39 mmHg ( - ) Continued Measurements: Valvular Assessment TV/PV Name Value CVP (est.): 10 mmHg Findings: Exam Comments: This is a limited echo to evaluate LV function in the ER during a Cardiac Alert. Multiple views were obtained and there is no obvious LV wall motion. There is no pericardial effusion.. (No Signature Object) Patient: DENNIS DAN Study Date: 11/17/2017 Page 1 of 2 02:17 PM Patient: DENNIS DAN Study Date: 11/17/2017 Page 2 of 2 02:17 PM [id number]
[2017-11-17] MEDS ORDERED: BENZONATATE 100 MG CAP PO PRN (17:26)
[2017-11-17] MEDS ORDERED: ONDANSETRON 4 MG/2 ML VIAL IVP PRN (17:28)
[2017-11-17] MEDS ORDERED: ONDANSETRON DISINTEGRATING 4 MG TAB PO PRN (17:28)
[2017-11-17] MEDS ORDERED: ACETAMINOPHEN 325 MG TAB PO PRN (17:28)
[2017-11-17] MEDS ORDERED: PROTOCOL MAGNESIUM 1 DOSE IV PRN (17:33)
[2017-11-17] MEDS ORDERED: PROTOCOL POTASSIUM 1 DOSE MISC PRN (17:33)
--- NOTE | 2017-11-17 17:41 | PDGENHP ---
History and Physical - Chief Complaint syncope and abd pain - History of Present Illness This is 67-year-old male who presents with upper abdominal pain and syncope. The inital report is that he was sitting at lunch when he developed upper abdominal cramping, followed by a persistent severe pain. He then became sweaty and had a witnessed syncopal episode. 911 was called. However, he is now reporting that his abdominal pain started one hour before he ate and that he started to eat and that made it worse and this was followed by a syncopal episode. On EMS arrival, he was hypotensive and diaphoretic. Cardia alert called into the ER. In the ED, blood pressure is normal and he had upper abdominal pain. His symptoms are similar to prior episode in July 2017. He had extensive w/u at that time to include negative CT chest and CT abd. He was seen by GI in an outpatient setting because he was reporting precancerous lesion and he reports that the colonoscopy was unremarkable. He is very upset this evening and is asking "why am I here". He has requested that the staff call the drug safety physician so he can be seen tonight. I've communicated that our GI physicians are contracts administrator for emergencies and that we will call them to notify them that he is here. He does not remember who performed his colonoscopy. He reports that he still has intermittent abd pain which is mostly in the epigastric and LUQ. He has not had an endoscopy before. He does report "esophogeal ulcerations" 30 years ago. He does not drink ETOH. He does not have GERD. He denies chest pain. He reports that his family members "drop suddenly" from cardiac problems. 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 He seems them every year. He denies chest pain. He tells me that his fainting has nothing to do with his heart. He denies fevers. He is not nauseous In the ER, RUQ US is unremarkable. No GB disease CT abd is pending Limited Echo shows no wall motion abnormality CXR is unremarkable EKG is unremarkable Trop is unremarkable BP is now stable He has slight Leukocytosis K is decreased at 3.1 PMH: renal cyst (removed). detached retina. HTN. arteriosis. kidney stones Social Hx: Never smoked FmHx: non contributory History Information - Allergies/Home Medication List Allergies/Adverse Reactions: Penicillins Allergy (Mild, Verified 11/17/17 14:05) FINGERS SWELLING Home Medications: Aspirin [Aspirin 325 mg (*)] 325 mg PO HS 07/26/14 [Last Taken 11/16/17] Hydrochlorothiazide [HCTZ (*)] 12.5 mg PO HS 07/26/14 [Last Taken 11/16/17] Lisinopril [Zestril 20 mg (*)] 20 mg PO HS 07/26/14 [Last Taken 11/16/17] Niacin ER [Niaspan 1000 mg (*)] 1,000 mg PO HS 07/26/14 [Last Taken 11/16/17] Atorvastatin Calcium [Lipitor 40 mg (*)] 40 mg PO HS 08/16/17 [Last Taken ] Testosterone 5 gm TP DAILY 08/16/17 [Last Taken 11/17/17] Benzonatate 200 mg PO DAILY PRN 11/17/17 [Last Taken 1 Week Ago ~11/10/17] predniSONE 20 mg PO DAILY PRN 11/17/17 [Last Taken 1 Week Ago ~11/10/17] I have personally reviewed and updated: medical history, social history - Past Medical History hypertension, hyperlipidemia - Family History Positive for: CAD - Social History Smoking Status: Never smoked Review of Systems Review of Systems: ROS: 10pt was reviewed & negative except for what was stated in HPI & below Physical Exam Physical Exam: Temp Pulse Resp BP Pulse Ox 36.3 C 68 18 121/69 H 91 L 11/17/17 14:13 11/17/17 17:20 11/17/17 17:20 11/17/17 17:20 11/17/17 17:20 Constitutional: no apparent distress Eyes: PERRL, EOMI Ears, Nose, Mouth, Throat: moist mucous membranes, hearing normal Cardiovascular: regular rate and rhythym, no murmur, rub, or gallop, systolic murmur Respiratory: no respiratory distress, no rales or rhonchi, clear to auscultation Gastrointestinal: normoactive bowel sounds, soft, non-tender abdomen Genitourinary: no bladder fullness Skin: warm Neurologic: AAOx3 Psychiatric: interacting appropriately, not anxious, not encephalopathic Lymph, Heme, Immunologic: No petechiae Lab Data & Imaging Review 11/17/17 13:45 11/17/17 13:45 WBC 11.21 10^3/uL (3.80-9.50) H 11/17/17 13:45 RBC 5.24 10^6/uL (4.40-6.38) 11/17/17 13:45 Hgb 15.6 g/dL (13.7-17.5) 11/17/17 13:45 POC Hgb 15.6 gm/dL (13.7-17.5) 11/17/17 14:05 Hct 45.1 % (40.0-51.0) 11/17/17 13:45 POC Hct 46 % (40-51) 11/17/17 14:05 MCV 86.1 fL (81.5-99.8) 11/17/17 13:45 MCH 29.8 pg (27.9-34.1) 11/17/17 13:45 MCHC 34.6 g/dL (32.4-36.7) 11/17/17 13:45 RDW 14.4 % (11.5-15.2) 11/17/17 13:45 Plt Count 287 10^3/uL (150-400) 11/17/17 13:45 MPV 10.3 fL (8.7-11.7) 11/17/17 13:45 Neut % (Auto) 59.9 % (39.3-74.2) 11/17/17 13:45 Lymph % (Auto) 26.5 % (15.0-45.0) 11/17/17 13:45 Terry % (Auto) 12.6 % (4.5-13.0) 11/17/17 13:45 Eos % (Auto) 0.3 % (0.6-7.6) L 11/17/17 13:45 Baso % (Auto) 0.4 % (0.3-1.7) 11/17/17 13:45 Nucleat RBC Rel Count 0.0 % (0.0-0.2) 11/17/17 13:45 Absolute Neuts (auto) 6.73 10^3/uL (1.70-6.50) H 11/17/17 13:45 Absolute Lymphs (auto) 2.97 10^3/uL (1.00-3.00) 11/17/17 13:45 Absolute Monos (auto) 1.41 10^3/uL (0.30-0.80) H 11/17/17 13:45 Absolute Eos (auto) 0.03 10^3/uL (0.03-0.40) 11/17/17 13:45 Absolute Basos (auto) 0.04 10^3/uL (0.02-0.10) 11/17/17 13:45 Absolute Nucleated RBC 0.00 10^3/uL (0-0.01) 11/17/17 13:45 Immature Gran % 0.3 % (0.0-1.1) 11/17/17 13:45 Immature Gran # 0.03 10^3/uL (0.00-0.10) 11/17/17 13:45 POC Sodium 142 mEq/L (135-145) 11/17/17 14:05 Sodium 139 mEq/L (135-145) 11/17/17 13:45 POC Potassium 2.8 mEq/L (3.3-5.0) L 11/17/17 14:05 Potassium 3.1 mEq/L (3.3-5.0) L 11/17/17 13:45 POC Chloride 103 mEq/L (97-110) 11/17/17 14:05 Chloride 102 mEq/L (97-110) 11/17/17 13:45 Carbon Dioxide 25 mEq/l (22-31) 11/17/17 13:45 Anion Gap 12 mEq/L (8-16) 11/17/17 13:45 POC BUN 13 mg/dL (7-23) 11/17/17 14:05 BUN 14 mg/dL (7-23) 11/17/17 13:45 Creatinine 1.0 mg/dL (0.7-1.3) 11/17/17 13:45 POC Creatinine 1.0 mg/dL (0.7-1.3) 11/17/17 14:05 Estimated GFR > 60 11/17/17 13:45 Glucose 115 mg/dL (70-100) H 11/17/17 13:45 POC Glucose 121 mg/dL (70-100) H 11/17/17 14:05 Calcium 9.4 mg/dL (8.5-10.4) 11/17/17 13:45 Total Bilirubin 0.7 mg/dL (0.1-1.4) 11/17/17 13:45 Conjugated Bilirubin 0.5 mg/dL (0.0-0.5) 11/17/17 13:45 Unconjugated Bilirubin 0.2 mg/dL (0.0-1.1) 11/17/17 13:45 AST 23 IU/L (17-59) 11/17/17 13:45 ALT 31 IU/L (21-72) 11/17/17 13:45 Alkaline Phosphatase 113 IU/L (38-126) 11/17/17 13:45 POC Troponin I 0.01 ng/mL (0.00-0.08) 11/17/17 14:09 Total Protein 6.6 g/dL (6.3-8.2) 11/17/17 13:45 Albumin 4.0 g/dL (3.5-5.0) 11/17/17 13:45 Lipase 120 IU/L (23-300) 11/17/17 13:45 Assessment & Plan Assessment: #Syncope, likely vasovagal but given his multiple BP meds, could also consider due to Hypotension #Abd Pain of unclear etiology -?GERD vs H-pylori vs other #Hypokalemia #Leukocytosis #HTN: holding home meds #Hx of precancerous colonic polyps per prior admission discharge summary. Colonoscopy unrevealing per his report #Chronic Prednisone use: Uses it PRN. We were unable to have further discussion about this at this time. Will need to be clarified. Plan: Admit observation Tele if he is agreeable Check complete ECHO. He is hesitant about this but is agreeable I checked a D-Dimer and its unremarkable He does not have chest pain Replace K I checked a Mg and its unremarkable He refuses a PPI. He refuse a clear liquid diet. He request a regular diet. He does not want any medical management other than the Echocardiogram until he is seen by a Manager Editorial. I will notify them tonight. Await official CT Abd results, these are pending Home meds as appropriate. Holding BP meds. Ill order orthostatics
[2017-11-17] MEDS ORDERED: POTASSIUM CL 20 MEQ TAB PO ONE (19:03)
[2017-11-17] MEDS ORDERED: POTASSIUM CL 10 MEQ TAB PO ONE (19:06)
[2017-11-17] MEDS ORDERED: ASPIRIN 325 MG TAB PO SCH (21:00)
[2017-11-17] MEDS ORDERED: ATORVASTATIN CALCIUM 40 MG TAB PO SCH (21:00)
[2017-11-18 04:12] LABS: PLATELET COUNT 236 10^3/uL (150-400)
--- NOTE | 2017-11-18 07:33 | GCON ---
[f rep st] CONSULTATION DATE OF CONSULTATION: 11/18/2017 REFERRING PHYSICIAN: Doc Muñoz MD REASON FOR CONSULTATION: Upper abdominal pain. CHIEF COMPLAINT: Upper abdominal pain. HISTORY OF PRESENT ILLNESS: The patient is a 67-year-old male with a history of hypertension, NSAID and prednisone use, who presents to [facility] with complaints of upper abdominal pain as well as syncope. The patient states he was doing well until yesterday before eating and started to experience a crampy pain in his upper abdomen. He went to a restaurant, but the pain continued and got worse. It was initially a 3/4 in intensity and increased to approximately 7/10. He felt lightheaded, dizzy, and had diaphoresis. He had a witnessed syncopal episode and came for further evaluation. He is unsure whether eating exacerbated his symptoms. He denies any alleviating factors. The patient had a similar episode in July of this year, but had a more progressive crampy pain in the lower quadrants. This pain was only relieved when he took pain medication. He denies any nausea, vomiting, dysphagia, or odynophagia. He has had some complaints of having mild constipation. He has had a prior colonoscopy a few years ago, which was unrevealing. During his workup, he had a CT scan of the abdomen and pelvis with IV contrast, which was unrevealing. He also had an ultrasound of the right upper quadrant, which was unrevealing. On blood work, he had a normal lipase as well as liver function tests. I am being asked by Dr. Muñoz to evaluate the patient in evaluation regarding his upper abdominal pain. PAST MEDICAL HISTORY: Hypertension, renal cyst, kidney stones, hyperlipidemia, and detached retina. PAST SURGICAL HISTORY: Surgery for a detached retina, excision of a kidney cyst. ALLERGIES: Penicillin. MEDICATIONS: Aspirin 325 mg a day, hydrochlorothiazide, lisinopril, niacin, atorvastatin, testosterone, prednisone, benzonatate. FAMILY HISTORY: Mother and father had coronary artery disease. SOCIAL HISTORY: No significant tobacco or alcohol use. REVIEW OF SYSTEMS: A 14-point comprehensive review of systems was asked. Pertinent positives and negatives per HPI. PHYSICAL EXAMINATION: VITAL SIGNS: Blood pressure 126/79, temperature 36.9, respiration 16. GENERAL: Awake, alert, and oriented x3. No distress. HEENT: Anicteric, moist mucosa. NECK: No JVD. CARDIOVASCULAR: Regular rhythm, positive S1, S2. No murmurs or gallops appreciated. LUNGS: Clear to auscultation bilaterally. No wheezes or rhonchi. ABDOMEN: Soft, nontender, nondistended. Positive bowel sounds. No guarding. No rebound. EXTREMITIES: No clubbing, cyanosis, or edema. NEUROLOGIC: 2 through 12 grossly intact. PSYCH: Normal affect. SKIN: No rash, nonicteric. ASSESSMENTS AND PLANS: 1. Abdominal pain-this episode was upper abdominal and previous episode in July was lower abdominal pain. Intermittent symptoms with possible vagal reaction. Blood work, CT, and ultrasound unrevealing for cause. At this time, I was unsure about the cause of his symptoms. Atypical for biliary, IBS, etc. I had a long discussion with the patient that we can proceed with an upper endoscopy, and he has risk factors for peptic ulcer disease with aspirin and prednisone use. We discussed that this is still a very low-yield test, but would recommend to proceed and can consider doing this as an outpatient. The risks, benefits, and alternatives of the procedure were discussed with the patient. I also recommended a trial of hyoscyamine when he has these attacks. If no other cause of his symptoms are found. 2. Hypertension. 3. Hyperlipidemia. 4. History of renal cysts. 5. History of retinal detachment. Thank you very much for this consultation. /[id number]/MODL MTDD
[2017-11-18 12:48] VITALS: BP 143/78
--- NOTE | 2017-11-18 13:32 | ASMTCASEMG ---
Living Arrangements What is your living Answers: With Spouse arrangement? Who do you live with? Type Of Residence What kind of residence do Answers: House you live in? Discharge Plan Comments Coordination Status Comments Notes: Pts case discussed w/ BETTYE Macdonald. Pt is a 67 y/o man admitted for syncope and abdominal pain. Pt will most likely discharge without any needs when medically stable. No therapies ordered at this time. CM available for changes. Plan: Independent Date Signed: 11/18/2017 01:32 PM Electronically Signed By:LORRIE Khan
--- NOTE | 2017-11-18 14:28 | ECHO ---
[email or web address] [address] [address] Main: [phone] Fax: Transthoracic Echocardiogram Name: DENNIS DAN MR#: [id number] Study Date: 11/18/2017 Study Time: 11:23 AM Date of : 1950 Age: 67 year(s) Height: 177.8 cm (70 in.) Weight: 96.62 kg (213 lb.) BSA: 2.14 m2 Gender: Male Examination: Echo Indication: Recurrent Syncope Image Quality: Contrast: Requested by: Soco Soto BP: 138 mmHg/88 mmHg Heart Rate: Rhythm: Indication: Recurrent Syncope Procedure Staff [employer] Control Room Operator: Kale Jorge RDCS Reading Physician: Primo Maxwell MD Requesting Provider: Conclusions: Normal size left ventricle. No LV hypertrophy. Normal global systolic LV function. EF is 70 %. No regional wall motion abnormality. Diastolic dysfunction is present. . Trivial to mild mitral regurgitation. There is no aortic valve regurgitation. There is no tricuspid valve regurgitation. No previous available Measurements: Chambers Valvular Assessment AV/MV Valvular Assessment TV/PV Normal Normal Normal Name Value Range Name Value Range Name Value Range Ao Nadiya (MM): 3.1 cm (2.2 cm-3.7 AV Vmax: 1.49 m/s (1 m/s-1.7 PV Vmax: 0.77 m/s (0.6 m/s-0.9 cm) m/s) m/s) IVSd (2D): 1.0 cm (0.6 cm-1.1 AV maxP mmHg ( - ) PV PGmax: 2 mmHg ( - ) cm) AV meanP mmHg ( - ) LVDd (2D): 4.4 cm (4.2 cm-5.9 LVOT Vmax: 0.95 m/s (0.7 m/s-1.1 cm) m/s) LVDs (2D): 2.7 cm (2.1 cm-4 VERNELL (Vmax): 2.2 cm2 ( - ) cm) VERNELL (VTI): 3.2 cm ( - ) LVPWd (2D): 1.0 cm (0.6 cm-1 MV E Vmax: 0.58 m/s ( - ) cm) MV A Vmax: 0.76 m/s ( - ) LVOTd 2.1 cm 2.1 cm mm MV E/A: 0.76 ( - ) LVEF (2D): 70 (>=54 %) Continued Measurements: Chambers Valvular Assessment AV/MV Patient: DENNIS DAN Study Date: 11/18/2017 Page 1 of 2 11:23 AM Name Value Name Value LADs Lon.6 cm MV E' Septal: 0.04 m/s LA Area: 16.5 cm2 MV E/E' Septal: 14.90 LA Volume: 56 ml MV E/E' Lateral: 9.80 LA Volume Index: 26.2 ml/m2 Findings: Left Ventricle: Normal size left ventricle. No LV hypertrophy. Normal global systolic LV function. EF is 70 %. No regional wall motion abnormality. Diastolic dysfunction is present. . Right Ventricle: Normal size right ventricle. Normal RV function. Left Atrium: The left atrium is normal in size. Right Atrium: The right atrium is normal in size. Mitral Valve: Mild mitral valve leaflet calcification is present. Trivial to mild mitral regurgitation. Aortic Valve: Mild aortic cusp calcification is noted. There is no aortic valve regurgitation. Tricuspid Valve: The tricuspid valve is normal in appearance and function. There is no tricuspid valve regurgitation. Pulmonic Valve: The pulmonic valve is normal in appearance and function. Aorta: The aorta is normal. Pericardium: No pericardial effusion. (No Signature Object) Patient: DENNIS DAN Study Date: 11/18/2017 Page 2 of 2 11:23 AM [id number]
== END 2017-11-18 14:58 | disposition home or self-care (01) ==
LOC: EDUNIT# → F2W 18:37
PROVIDERS: ADMIT Family Medicine; ATTEND Internal Medicine
DX: R55 Syncope and collapse (principal); R10.10 Upper abdominal pain, unspecified; E87.6 Hypokalemia; E86.9 Volume depletion, unspecified; D72.829 Elevated white blood cell count, unspecified; I10 Essential (primary) hypertension; E78.5 Hyperlipidemia, unspecified; N20.0 Calculus of kidney; Z79.52 Long term (current) use of systemic steroids; Z79.1 Long term (current) use of non-steroidal anti-inflammatories (NSAID); Z86.010 Personal history of colon polyps; Z87.442 Personal history of urinary calculi; Z82.49 Family history of ischemic heart disease and other diseases of the circulatory system; Z88.0 Allergy status to penicillin
CPT/HCPCS: 71045; 74177; 76705; 93005; 93306; 93308; G0378; Q9967; 82435-PO; 82565-PO; 82947-PO; 84132-PO; 84295-PO; 84484-PO; 84520-PO; 85014-PO

== ENCOUNTER → 2018-08-16 | Outpatient (CLI) | payer OTHER, MEDICARE | LOC: FIMAGING 14:09 | PROVIDERS: ATTEND Urology | DX: N20.0 Calculus of kidney (principal); K59.00 Constipation, unspecified ==

== ENCOUNTER → 2018-08-17 | Outpatient (CLI) | payer OTHER, MEDICARE | LOC: FIMAGING 10:47 | PROVIDERS: ATTEND Urology | DX: N20.0 Calculus of kidney (principal) ==